=== PATIENT | male | born 1960 | race Caucasian/White ===

== ENCOUNTER 2023-11-18 10:26 | Outpatient (CLI) | payer BC, SELFPAY ==
--- NOTE | ~2023-11-18 | CT_ITS ---
EXAMINATION: CT soft tissue neck w con DATE: 11/18/2023 11:46 INDICATION: Right neck swelling. TECHNIQUE: Computed tomography (CT) of the neck was performed with 75 mL Omnipaque-350 intravenous co ntrast. Automated exposure control and iterative reconstruction technique were employed. The dose-nayeli gth product was 679.68 mGy-cm. COMPARISON: None FINDINGS: There is a 4.0 x 3.1 cm subcutaneous mass of fat in right lateral neck. Stranding in the ma ss is similar to that in normal subcutaneous fat. There are no pathologically enlarged lymph nodes. T here is plaque in the proximal internal coronary is 0% stenosis relative to normal posterior lumen di ameters. There is severe cervical spondylosis. IMPRESSION: 1. 4.0 cm subcutaneous mass in right lateral neck, likely a lipoma. Given the stranding in the mass, liposarcoma cannot be excluded. Reviewed, dictated and finalized at location A. [facility] IMPRESSION: 1. 4.0 cm subcutaneous mass in right lateral neck, likely a lipoma. Given the s tranding in the mass, liposarcoma cannot be excluded.
[2023-11-18 11:08] LABS: Estimated Glomerular Filt Rate > 60
== END 2023-11-18 10:27 | disposition home or self-care (01) ==
LOC: CHSIMG 10:31
PROVIDERS: PCP Physician Assistant; Visit Provider Physician Assistant
DX: R22.1 Localized swelling, mass and lump, neck (principal)
CPT/HCPCS: 70491; Q9967